=== PATIENT | male | born 1985 | race Caucasian/White ===

== ENCOUNTER 2020-08-05 17:36 | Emergency (ER) | payer OTHER ==
[2020-08-05] MEDS ORDERED: LODINE CAP 300300 MG PO (19:43)
== END 2020-08-05 20:25 | disposition home or self-care (01) ==
LOC: ER1 17:36
DX: S93.402A Sprain of unspecified ligament of left ankle, initial encounter (principal); S93.602A Unspecified sprain of left foot, initial encounter; J45.909 Unspecified asthma, uncomplicated; X50.1XXA Overexertion from prolonged static or awkward postures, initial encounter; W19.XXXA Unspecified fall, initial encounter
CPT/HCPCS: 73610; 73630; 99283